=== PATIENT | male | born 1975 | race American Indian/Alaskan Native ===

== ENCOUNTER 2017-01-30 06:55 | Inpatient (IN) | payer MEDICARE ==
[2017-01-30 07:41] LABS: Basophils % (Auto) 0.4 % (0.0-1.8); Eosinophils % (Auto) 1.9 % (0.0-4.3); Hematocrit 40.8 % (35.5-45.6); Hemoglobin 13.6 gm/dl (11.8-15.2); Mean Corpuscular HGB Conc 33 % (32-34); Mean Corpuscular Hemoglobin 28 pg (28-32); Mean Corpuscular Volume 83 fl (84-94); Platelet Count 288 K/mm3 (140-440); Red Cell Distribution Width 15.2 % (13.2-15.2); White Blood Count 4.6 K/mm3 (4.5-11.0)
[2017-01-30 08:17] LABS: Anion Gap 20 mmol/L; Blood Urea Nitrogen 11 mg/dL (9-20); Calcium 9.1 mg/dL (8.4-10.2); Carbon Dioxide 23 mmol/L (22-30); Chloride 103.3 mmol/L (98-107); Glucose 103 mg/dL (75-100); Lipase 34 units/L (13-60); Potassium 3.5 mmol/L (3.6-5.0); Sodium 143 mmol/L (137-145)
[2017-01-30 09:23] LABS: Bilirubin,Urine NEG (Negative); Blood,Urine SM (Negative); Ketones,Urine NEG (Negative); Leukocyte Esterase,Urine NEG (Negative); Mucus,Urine FEW /HPF; Nitrite,Urine NEG (Negative); Protein,Urine <15 mg/dL mg/dL (Negative); Urobilinogen,Urine < 2.0 mg/dL (<2.0)
[2017-01-30] MEDS ORDERED: MORPHINE IV ONE (13:02)
[2017-01-30] MEDS ORDERED: ZOFRAN IV ONE (13:02)
--- NOTE | 2017-01-30 13:07 | Emergency Department Report ---
HPI - General Chief Complaint: Chest Pain Time Seen by Provider: 01/30/17 12:46 - HPI HPI: Room 22 The patient is a 41-year-old male presenting with a chief complaint of chest pain, abdominal pain and left-sided weakness. Patient states his symptoms began 6 days ago with abdominal bloating. Patient states last night he felt as though the bloating has "spread" to his chest. Patient states she developed chest pain and family noticed swelling to the left chest. The patient states last night he developed an occipital headache. The patient states he awakened this morning at 05:30 0 secondary to the abdominal and chest pain. The patient states shortly afterward she felt a shooting pain down his left upper extremity and then he developed weakness in his left upper extremity and left lower extremity. The patient states she has had chest pain intermittently since 2012 but last night the pain has increased. Patient states she had a normal stress test 3 years ago but has never had a cardiac catheterization Location: Chest, abdomen, head left upper extremity and left lower extremity Duration: [see above] Quality: Pain Severity: [see above] Modifying factors: [see above] Context: [see above] Mode of transportation: [not driving] ED Past Medical Hx - Past Medical History Previous Medical History?: Yes Hx Hypertension: Yes Hx GERD: Yes Additional medical history: Spinal problems, Cervical disc disease, Constipation , chronic regional pain syndrome (CRPS) - Surgical History Past Surgical History?: No - Family History Family history: no significant - Social History Smoking Status: Never Smoker Substance Use Type: Prescribed - Medications Home Medications: Home Medications Medication Instructions Recorded Confirmed Last Taken Type Nebivolol HCl [Bystolic] 10 mg PO QDAY 01/30/17 01/30/17 1 Day Ago History Pantoprazole Sodium 40 mg PO DAILY 01/30/17 01/30/17 1 Day Ago History amLODIPine [Norvasc] 10 mg PO DAILY 01/30/17 01/30/17 1 Day Ago History clonazePAM 1 mg PO DAILY 01/30/17 01/30/17 1 Day Ago History ED Review of Systems ROS: Stated complaint: HIGH BP/CHEST PAIN Other details as noted in HPI Comment: All other systems reviewed and negative Constitutional: denies: chills, fever Eyes: denies: eye pain, eye discharge, vision change ENT: denies: ear pain, throat pain Respiratory: denies: cough, shortness of breath, wheezing Cardiovascular: chest pain Endocrine: no symptoms reported Gastrointestinal: abdominal pain Genitourinary: denies: urgency, dysuria Musculoskeletal: denies: back pain, joint swelling, arthralgia Skin: denies: rash, lesions Neurological: headache, weakness, paresthesias Psychiatric: denies: anxiety, depression Hematological/Lymphatic: denies: easy bleeding, easy bruising Physical Exam - Physical Exam Vital Signs: Vital Signs 01/30/17 01/30/17 01/30/17 07:13 12:29 12:30 Temperature 98.8 F 99.1 F Pulse Rate 104 H 95 H Respiratory 20 23 Rate Blood Pressure 154/99 Blood Pressure 117/74 [Left] O2 Sat by Pulse 100 99 99 Oximetry Physical Exam: GENERAL: The patient is well-developed well-nourished male lying on stretcher not appearing to be in acute distress. [] HEENT: Normocephalic. Atraumatic. Extraocular motions are intact. Patient has moist mucous membranes. NECK: Supple. Trachea midline CHEST/LUNGS: Clear to auscultation. There is no respiratory distress noted. HEART/CARDIOVASCULAR: Regular. There is no tachycardia. There is no gallop rub or murmur. ABDOMEN: Abdomen is soft, with diffuse discomfort to palpation. Patient has normal bowel sounds. There is no abdominal distention. SKIN: There is no rash. There is no edema. There is no diaphoresis. NEURO: The patient is awake, alert, and oriented. The patient is cooperative. Cranial nerves II through XII grossly intact. The patient has normal speech. Decreased sensation of the left upper extremity and left lower extremity. Patient states he is not able to fully flex his left lower extremity or move his left arm MUSCULOSKELETAL: There are contractures of the right upper extremity. There is no evidence of acute injury. ED Course Vital Signs 01/30/17 01/30/17 01/30/17 07:13 12:29 12:30 Temperature 98.8 F 99.1 F Pulse Rate 104 H 95 H Respiratory 20 23 Rate Blood Pressure 154/99 Blood Pressure 117/74 [Left] O2 Sat by Pulse 100 99 99 Oximetry ED Medical Decision Making - Lab Data Result diagrams: 01/30/17 07:32 01/30/17 07:32 Laboratory Tests 01/30/17 01/30/17 01/30/17 07:32 07:32 08:32 WBC 4.6 RBC 4.90 Hgb 13.6 Hct 40.8 MCV 83 L MCH 28 MCHC 33 RDW 15.2 Plt Count 288 Lymph % (Auto) 39.7 H [place] % (Auto) 11.2 H Eos % (Auto) 1.9 Baso % (Auto) 0.4 Lymph # 1.8 [place] # 0.5 Eos # 0.1 Baso # 0.0 Seg Neutrophils % 46.8 Seg Neutrophils # 2.1 Sodium 143 Potassium 3.5 L Chloride 103.3 Carbon Dioxide 23 Anion Gap 20 BUN 11 Creatinine 1.1 Estimated GFR > 60 BUN/Creatinine Ratio 10.00 Glucose 103 H Calcium 9.1 Troponin T < 0.010 Lipase 34 Urine Color Yellow Urine Turbidity Clear Urine pH 5.0 Ur Specific [place] 1.014 Urine Protein <15 mg/dl Urine Glucose (UA) Neg Urine Ketones Neg Urine Blood Sm Urine Nitrite Neg Urine Bilirubin Neg Urine Urobilinogen < 2.0 Ur Leukocyte Esterase Neg Urine WBC (Auto) 2.0 Urine RBC (Auto) 3.0 Urine Mucus Few 01/30/17 10:08 WBC RBC Hgb Hct MCV MCH MCHC RDW Plt Count Lymph % (Auto) [place] % (Auto) Eos % (Auto) Baso % (Auto) Lymph # [place] # Eos # Baso # Seg Neutrophils % Seg Neutrophils # Sodium Potassium Chloride Carbon Dioxide Anion Gap BUN Creatinine Estimated GFR BUN/Creatinine Ratio Glucose Calcium Troponin T < 0.010 Lipase Urine Color Urine Turbidity Urine pH Ur Specific [place] Urine Protein Urine Glucose (UA) Urine Ketones Urine Blood Urine Nitrite Urine Bilirubin Urine Urobilinogen Ur Leukocyte Esterase Urine WBC (Auto) Urine RBC (Auto) Urine Mucus - EKG Data -: EKG Interpreted by Ok EKG shows normal: sinus rhythm Rate: normal - EKG Data When compared to previous EKG there are: previous EKG unavailable Interpretation: other (no ischemic changes seen) - Radiology Data Radiology results: report reviewed (CT head, CT chest, CT abdomen and pelvis), image reviewed (CT head, CT chest, CT abdomen and pelvis) CT head (read by radiologist)-1.5 x 4.2 cm arachnoid cyst is suspected left middle cranial fossa causing mild mass effect. Follow-up MRI may be useful to evaluate this abnormality and assess for the left-sided weakness etiology, as a cause for left-sided weakness is not seen on this study. CT chest (read by radiologist)-no pulmonary embolus is seen. CT abdomen and pelvis (read by radiologist)-there is mild disc bulge at L4-5 causing little stenosis. Bony changes cause moderate left neural foraminal narrowing at L5-S1. Tiny cyst is seen in the right kidney. - Differential Diagnosis CVA, ACS, PE, diverticulitis Critical care attestation.: If time is entered above; I have spent that time in minutes in the direct care of this critically ill patient, excluding procedure time. ED Disposition Clinical Impression: Left-sided weakness, Headache, Chest pain Disposition: OP ADMITTED IP TO THIS HOSP Is pt being admited?: Yes Does the pt Need Aspirin: Yes Condition: Fair Instructions: Chest Pain (ED) Referrals: PRIMARY CARE,MD [Primary Care Provider] - 3-5 Days Time of Disposition: 15:20 (hospitalist paged)
[2017-01-30] MEDS ORDERED: NACL ONE (13:12)
--- NOTE | 2017-01-30 14:54 | Cat Scan Report ---
FINAL REPORT PROCEDURE: CT HEAD/BRAIN WO CON TECHNIQUE: Computerized tomography of the head was performed without contrast material. HISTORY: headache, left-sided weakness COMPARISON: No prior studies are available for comparison. FINDINGS: There is a probable arachnoid cyst in the medial aspect of the left middle cranial fossa measuring 1.5 x 4.2 cm. Averaging with the floor of the left middle cranial fossa is seen image 10. No suspicious calcifications are seen. Arachnoid cyst causes mild mass effect. No hydrocephalus is seen. No acute intracranial hemorrhage or CVA is seen. Visualized portions of the paranasal sinuses and mastoid air cells are clear. No calvarial fracture is seen. IMPRESSION: 1.5 x 4.2 cm arachnoid cyst is suspected in the left middle cranial fossa causing mild mass effect. Followup MRI may be useful to evaluate this abnormality and assess for the left-sided weakness etiology, as a cause for left-sided weakness is not seen on this study.
--- NOTE | 2017-01-30 15:04 | Cat Scan Report ---
FINAL REPORT PROCEDURE: CT ANGIO CHEST TECHNIQUE: Computerized tomographic angiography of the chest was performed after the IV injection of iodinated nonionic contrast including image processing. The image data was postprocessed using 2-dimensional multiplanar reformatted (MPR) and 3-dimensional (MIP and/or volume rendered) techniques. HISTORY: chest pain, left-sided weakness COMPARISON: No prior studies are available for comparison. FINDINGS: Very tiny bleb or pneumatocele is seen in the left lower lobe on image 74 of series 3. No pneumothorax or pleural effusion is seen. Heart is top normal limits in size. Thoracic aorta is normal in size without evidence of dissection. No mediastinal lymphadenopathy is seen. No pulmonary embolus is seen. IMPRESSION: No pulmonary embolus is seen.
--- NOTE | 2017-01-30 15:11 | Cat Scan Report ---
FINAL REPORT PROCEDURE: CT ABDOMEN PELVIS W CON TECHNIQUE: Computerized axial tomography of the abdomen and pelvis was performed after the IV injection of iodinated nonionic contrast. HISTORY: diffuse abdominal pain COMPARISON: No prior studies are available for comparison. FINDINGS: Liver and spleen appear normal. Pancreas and gallbladder display no abnormalities. Adrenal glands and abdominal aorta are normal in size. 4 millimeter cyst is seen in the lower pole of the right kidney. Bladder appears normal normal appendix is seen. No free pelvic fluid is seen. There is no constipation or evidence of bowel obstruction. Mild uncovertebral osteophytes and central disc osteophyte complex are seen at L5-S1 causing little central canal narrowing and moderate left neural foraminal narrowing. Broad-based central disc bulge at L4-5 likely causes mild central canal and lateral recess narrowing. IMPRESSION: There is mild disc bulge at L4-5 causing little stenosis. Bony changes cause moderate left neural foraminal narrowing at L5-S1. Tiny cyst is seen in the right kidney.
[2017-01-30] MEDS ORDERED: ASPIRIN PO ONE (15:21)
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
[2017-01-30] MEDS ORDERED: AMBIEN PO PRN (15:48)
[2017-01-30] MEDS ORDERED: NITROSTAT SL PRN (15:48)
[2017-01-30] MEDS ORDERED: TYLENOL PO PRN (15:48)
[2017-01-30] MEDS ORDERED: MORPHINE IV PRN (15:48)
[2017-01-30] MEDS ORDERED: PERCOCET 5/325 PO PRN (15:50)
[2017-01-30] MEDS ORDERED: PEPCID PO SCH (22:00)
[2017-01-30] MEDS ORDERED: LOPRESSOR PO SCH (22:00)
[2017-01-31 06:34] LABS: Creatine Kinase MB 1.2 ng/mL (0.0-4.0)
[2017-01-31 06:40] LABS: Anion Gap 18 mmol/L; BUN/Creatinine Ratio 8.18; Blood Urea Nitrogen 9 mg/dL (9-20); Calcium 8.8 mg/dL (8.4-10.2); Carbon Dioxide 25 mmol/L (22-30); Chloride 102.4 mmol/L (98-107); Creatine Kinase 313 units/L (55-170); Glucose 84 mg/dL (75-100); Phosphorous 3.3 mg/dL (2.5-4.5); Potassium 3.9 mmol/L (3.6-5.0); Sodium 141 mmol/L (137-145)
[2017-01-31] MEDS ORDERED: NON-FORMULARY (Clonazepam [Clonazepam] 1 MG) PO SCH (10:00)
[2017-01-31] MEDS ORDERED: BABY ASPIRIN PO SCH (10:00)
[2017-01-31] MEDS ORDERED: LOVENOX SUB-Q SCH (10:00)
[2017-01-31] MEDS ORDERED: NORVASC PO SCH (10:00)
--- NOTE | 2017-01-31 10:56 | Discharge Summary ---
Providers - Providers Date of Admission: 01/30/17 15:47 Date of discharge: 01/31/17 Attending physician: NEGAR LEMUS Primary care physician: RITU CAST MD Hospitalization Condition: Fair Disposition: DISCHARGED TO HOME OR SELFCARE - Discharge Diagnoses (1) Musculoskeletal chest pain Status: Acute Core Measure Documentation - Palliative Care Palliative Care/ Comfort Measures: Not Applicable - Core Measures Any of the following diagnoses?: none Exam - Constitutional Vitals: Temp Pulse Resp BP Pulse Ox 97.5 F L 65 20 115/59 97 01/31/17 04:40 01/31/17 10:00 01/31/17 10:00 01/31/17 04:40 01/31/17 10:00 Plan Activity: advance as tolerated Diet: low fat, low cholesterol Additional Instructions: 1.Follow up with PCP in 1 week. 2.Follow up with Spine surgeon in 3-5 days. Follow up with: PRIMARY CAREMD [Primary Care Provider] - 3-5 Days
[2017-01-31] MEDS ORDERED: LEXISCAN IV ONE (11:28)
[2017-01-31 12:52] VITALS: BP 143/82
--- NOTE | 2017-01-31 22:34 | Treadmill Report ---
THALLIUM STRESS TEST LEFT VENTRICLE: Left ventricular chamber size is within normal. Perfusion study demonstrates homogeneous uptake of the tracer in all segments, no significant defects identified. Gated analysis was normal left ventricular systolic function with ejection fraction 65%. CONCLUSION: Normal myocardial perfusion study. JOB# [id number] CA/NTS
== END 2017-01-31 14:30 | disposition home or self-care (01) | DRG 313 ==
LOC: ED 06:55 → 3A 15:47 → 4A 17:22
PROVIDERS: ADMIT Internal Medicine; ATTEND Internal Medicine
DX: R07.89 Other chest pain (principal); G95.9 Disease of spinal cord, unspecified; E87.6 Hypokalemia; R10.9 Unspecified abdominal pain; I10 Essential (primary) hypertension; K21.9 Gastro-esophageal reflux disease without esophagitis; G89.4 Chronic pain syndrome; Z82.49 Family history of ischemic heart disease and other diseases of the circulatory system
CPT/HCPCS: 36415; 70450; 71275; 74177; 78452; 80048; 80061; 81001; 82550; 82553; 83690; 83735; 84100; 84484; 85025; 93005; 93010; 93017; 93306; 96374; 96375; A9270-GY; A9502; J2270; J2405; J2785; Q9967

== ENCOUNTER 2017-05-19 11:43 | Day surgery (SDC) | payer MEDICARE ==
--- NOTE | 2017-05-19 13:56 | Anesthesia Consultation ---
Anesthesia Consult and Med Hx Date of service: 05/19/17 - Airway Anesthetic Teeth Evaluation: Good ROM Head & Neck: Adequate Mental/Hyoid Distance: Adequate Mallampati Class: Class II Intubation Access Assessment: Probably Good - Pulmonary Exam CTA: Yes - Cardiac Exam Cardiac Exam: RRR - Pre-Operative Health Status ASA Pre-Surgery Classification: ASA2 Proposed Anesthetic Plan: MAC - Pulmonary Hx Smoking: No Hx Asthma: No COPD: No Hx Pneumonia: No Hx Sleep Apnea: No (HIGH RISK) - Cardiovascular System Hx Hypertension: Yes Hx Cardia Arrhythmia: Yes (tachycardia) - Central Nervous System Hx Back Pain: Yes Hx Psychiatric Problems: Yes - Gastrointestinal Hx Gastroesophageal Reflux Disease: Yes - Endocrine Hx End Stage Renal Disease: No - Other Systems Hx Cancer: No
[2017-05-19] MEDS ORDERED: NACL 0.9% 1000 ML 1,000 ML IV SCH (14:00)
[2017-05-19] MEDS ORDERED: DIPRIVAN 10 MG/ML IV ONE ×2 (15:34)
[2017-05-19] MEDS ORDERED: ZOFRAN ONE (16:07)
--- NOTE | 2017-05-19 16:19 | Discharge Summary ---
Short Stay Discharge Plan Activity: advance as tolerated Weight Bearing Status: Weight Bear as Tolerated Diet: regular Follow up with: PRIMARY CARE, [Primary Care Provider] - 7 Days
--- NOTE | 2017-05-19 16:19 | Operative Report ---
Operative Report Operative Report: Date: 05/19/2017 Operative Report: Date of procedure: 05/19/2017 Procedure: Esophagogastroduodenoscopy with multiple mucosal biopsies. Attending physician: Cecil Mojica MD Product Support Manager: Cecil Mojica MD Indication: Patient is a 42 -year-old male who presented with a history of episodic / recurrent epigastric pain, heartburn and indigestion. An upper endoscopy is done to assess patient, so that treatment may be directed based on the findings. Consent: Informed consent was obtained after advising the patient and family regarding nature of this procedure, its indications, potential benefits as well as possible complications including but not limited to bleeding perforation and adverse reaction to medication, infection as well as other cardiopulmonary complications. An informed written and verbal consent was then obtained after due opportunity was provided for questions and answers. Monitoring: Patient was monitored continuously with pulse oximetry and electrocardiographic recordings as well as blood pressure recordings. Vital signs remained stable throughout this procedure with no untoward events. Preoperative assessment: Patient was assessed immediately prior to this procedure for capacity to tolerate monitored anesthesia care and moderate sedation as well as general anesthesia. Patient's ASA classification is 2, Mallampati class is 2, Hyomental distance is 3. Instrument: [employer] video endoscope Medications: Propofol given intravenously in divided doses. For details please refer to anesthesia records. Description of procedure: Patient was placed in the left lateral decubitus position after achieving sedation, the endoscope was introduced into the esophagus under direct vision. It was then advanced beyond the esophagus into the stomach and then beyond the stomach into the duodenum and to the second portion of the duodenum. It was subsequently withdrawn with careful inspection of all mucosal surfaces with the following findings. Findings: The esophagus was normal. Patient has an irregular Z line at 39 cm. There was a small diminutive sliding hiatal hernia seen on entry into the stomach. There was erythema in the gastric antrum. Biopsies of the antrum were obtained for histopathology. The duodenal bulb was slightly deformed. The rest of the duodenum was normal to second portion. Impression: Irregular Z line. Gastric antral erythema Hiatal hernia. Mildly deformed duodenal bulb Plan: Follow pathology report. Direct additional treatment based on the pathology report. Patient will be observed clinically. Additional recommendations will be made follow-up.
--- NOTE | 2017-05-19 16:49 | Anesthesia Day of Surgery ---
Anesthesia Day of Surgery - Day of Surgery Patient Examined: Yes Patient H&P Reviewed: Yes Patient is NPO: Yes Beta Blockers: Yes
--- NOTE | 2017-05-19 16:49 | Post Anesthesia Evaluation ---
- Post Anesthesia Evaluation Patient Participated: Yes Airway Patent: Yes Stable Respiratory Function: Yes Nausea/Vomiting: No Temp > 96.8F: Yes Pain Manageable: Yes Adequeate Hydration: Yes Anesthesia Complications: No Block Receding Appropriately: Not Applicable Patient on Ventilator: No
[2017-05-19 17:15] VITALS: BP 146/99
[2017-05-19] MEDS ORDERED: WATER FOR IRRIG STERILE IR ONE (17:17)
== END 2017-05-19 11:44 | disposition home or self-care (01) ==
LOC: GIO 11:43
PROVIDERS: ATTEND Internal Medicine Gastroenterology
DX: K29.50 Unspecified chronic gastritis without bleeding (principal); K22.8 Other specified diseases of esophagus; K44.9 Diaphragmatic hernia without obstruction or gangrene; K31.89 Other diseases of stomach and duodenum; F41.9 Anxiety disorder, unspecified; F32.9 Major depressive disorder, single episode, unspecified; K21.9 Gastro-esophageal reflux disease without esophagitis; I10 Essential (primary) hypertension; Z79.899 Other long term (current) drug therapy; Z86.79 Personal history of other diseases of the circulatory system; Z88.8 Allergy status to other drugs, medicaments and biological substances
CPT/HCPCS: 43239; 88305; 88342; J2405; J2704